=== PATIENT | male | born 1990 | race Two or more races ===

== ENCOUNTER 2020-04-20 02:48 | Emergency (ER) | payer MEDICAID, OTHER ==
[~2020-04-20] VITALS: Ht 180.3 cm; Wt 82.1 kg
[2020-04-20 03:01] VITALS: BP 145/83
== END 2020-04-20 07:46 | disposition left against medical advice (07) ==
LOC: ER 02:48
DX: R21 Rash and other nonspecific skin eruption (principal); Z53.21 Procedure and treatment not carried out due to patient leaving prior to being seen by health care provider